=== PATIENT | female | born 1950 | race Caucasian/White ===

== ENCOUNTER 2018-10-02 12:57 | Emergency (ER) | payer MEDICARE, OTHER ==
[~2018-10-02] VITALS: Ht 167.6 cm; Wt 68.0 kg
[2018-10-02] MEDS ORDERED: TRAMADOL HCL 50 MG TABLET ONE (14:43)
[2018-10-02] MEDS ORDERED: TRAMADOL HCL 50 MG TABLET PO ONE (15:00)
[2018-10-02 15:05] VITALS: BP 136/78
== END 2018-10-02 15:23 | disposition home or self-care (01) ==
LOC: ER 13:12
DX: S80.212A Abrasion, left knee, initial encounter (principal); M25.571 Pain in right ankle and joints of right foot; G89.29 Other chronic pain; M54.5 Low back pain; Z88.8 Allergy status to other drugs, medicaments and biological substances; Z86.19 Personal history of other infectious and parasitic diseases; W23.0XXA Caught, crushed, jammed, or pinched between moving objects, initial encounter; Y93.89 Activity, other specified; Y92.89 Other specified places as the place of occurrence of the external cause; Y99.8 Other external cause status
CPT/HCPCS: 73564-TC; 73610-TC; 73630-TC

== ENCOUNTER 2021-08-08 21:13 | Emergency (ER) | payer MEDICARE, OTHER ==
[~2021-08-08] VITALS: Ht 167.6 cm; Wt 63.5 kg
--- NOTE | 2021-08-08 21:25 | NUR ---
PT BIBSELF C/O HAVING POSSIBLE LUMPS ON R ARM X3 DAYS. SKIN INTACT. DENIES PAIN. PT A/OX4. TOLERATING R/A WITH NO SOB. PT IN PT GOWN.
--- NOTE | 2021-08-08 22:14 | NUR ---
PT SEEN BY MEG ROSE
[2021-08-08] MEDS ORDERED: KETOROLAC TROMETHAMINE INJ 60 MG/2 ML VIAL IM ONE ×2 (22:19→22:30)
--- NOTE | 2021-08-08 22:25 | NUR ---
PT TAKEN TO CT VIA JIMMY
[2021-08-09 00:16] VITALS: BP 106/59
--- NOTE | 2021-08-09 00:16 | NUR ---
Patient discharged to home in stable condition. Written and verbal after care instructions given. Patient verbalizes understanding of instruction. PT ambulatory with a steady gait
== END 2021-08-09 00:16 | disposition home or self-care (01) ==
LOC: ER 21:22
DX: M25.511 Pain in right shoulder (principal); M19.90 Unspecified osteoarthritis, unspecified site; Z88.8 Allergy status to other drugs, medicaments and biological substances
CPT/HCPCS: 73200; 96372; 99284; J1885